=== PATIENT | female | born 2000 | race Two or more races ===

== ENCOUNTER 2025-09-21 14:40 | Emergency (ER) | payer MEDICAID, SELFPAY ==
[2025-09-21 14:42] VITALS: BMI 30.6
[2025-09-21 14:50] VITALS: BP 110/71; PULSE 96; RESP 20; TEMP 36.6; O2SAT 97
--- NOTE | 2025-09-21 15:27 | EDNOTE_ITS ---
ED General RME/HPI General Chief complaint: Fever Stated complaint: LOST A TAMPON IN MY VAGINA X2 DAYS; FEVER Time Seen by Provider: 09/21/25 15:06 Arrival date/time: 09/21/25 14:40 25-year-old female patient came in for evaluation regarding possible tampon in the vagina for 2 days. Patient also complained of fever. Associated with pelvic discomfort. Denies any abnormal vaginal discharge. No abdominal pain no rashes noted no vomiting or other complaints noted. Related Data Previous Rx's ?Medication ?Instructions ?Recorded ibuprofen 800 mg tablet 800 mg PO TID PRN pain #30 t abs 09/21/25 Allergies Allergy/AdvReac Type Severity Reaction Status Date / Time No Known Allergies Allergy Verified 09/21/25 14:44 Review of Systems Review of Systems Narrative Review of Systems: Review of system reviewed and within normal limits except mentioned in HPI ED Exam Narrative Physical exam: VITAL SIGNS: Reviewed. GENERAL APPEARANCE: Alert and interactive, follows commands, no acute distress, HEAD AND FACE: Non-traumatic. ENT: PERRL, pink conjunctivitis, eyelid no trauma, Mucous membrane moist. NECK: Supple, nontender, no nuchal rigidity. CHEST: No tenderness, no crepitus, no paradoxical movement, no retractions. LUNGS: Clear, well ventilated, symmetric, no rales, no wheezing, no ronchi, no stridor, good breath sounds bilaterally. HEART: Regular rate, regular rhythm, no murmur, no gallops. ABDOMEN: Soft, positive bowel sounds, nondistended, no guarding, nontender, no rebound, no masses, RECTAL: Deferred. GENITAL: See MDM NEUROLOGICAL: Gross motor function intact sensory function intact, Appropriate f or age. MUSCULOSKELETAL: low back nontender, full range of motion. EXTREMITIES: Nontender, full range of motion. SKIN: Color pink, dry, no rash, no lacerations, no abrasions, no contusions. LYMPHATICS: Deferred. Course Quality Measures none Orders Category Date Time Status HCG Qualitative,Urine Stat Lab 09/21/25 16:30 Completed UA, C/S IF [Urinalysis, C/S if Indicated] Stat Lab 09/21/25 16:30 Completed Ketorolac Inj [Toradol Inj] Med 09/21/25 15:33 Discontinued 30 mg IM X1 ONE Vital Signs Vital signs: Vital Signs Temperature 97.8 F 09/21/25 14:50 Pulse Rate 96 09/21/25 14:50 Respiratory Rate 20 09/21/25 14:50 Blood Pressure 110/71 09/21/25 14:50 Pulse Oximetry (%) 97 09/21/25 14:50 Oxygen Delivery Method Room Air 09/21/25 14:50 Discharge Plan Plan Patient Disposition: HOME (Self Care) Discharge Disposition comment: Stable Prescriptions/Referrals Prescriptions/Med Rec: New ibuprofen 800 mg tablet 800 mg PO TID PRN (Reason: pain) Qty: 30 0RF Referrals: Gil Hutchison MD [Primary Care Provider, Family Practice] - In 1 week Problem List Clinical Impression: Dysmenorrhea Patient/Caregiver Discharge Instructions Discharge Activity: activity as tolerated Education Materials: ED MENSTRUAL CRAMPING Additional Instructions: Thank you for the opportunity for serving you today. You are stable for discharged . You are advised to: Follow-up with your PCP in 1 to 2 days Return to ED for worsening of symptoms Increase oral fluids Take medication as prescribed Pelvic exam did not show any foreign body in her vagina, urinalysis no UTI I wanted to follow-up with your LOGISTICS ENGINEER regarding your urinary incontinence. Print Language: Filipino Stand Alone Forms: Apiary Award Info., Patient Portal Info Letter MDM Narrative MDM hospital course (for use when minimal MDM required): 09/21/25 14:40 25-year-old female patient came in for evaluation regarding possible tampon in the vagina for 2 days. Patient also complained of fever. Associated with pelvic discomfort. Denies any abnormal vaginal discharge. No abdominal pain no rashes noted no vomiting or other complaints noted. Patient also complaining of urinary incontinence. Pelvic exam was done by me with a female nurse around all the time, using speculum, I did not notice any foreign body in the vaginal canal. No abnormal discharge is noted patient still having menstruation. Urinalysis no UTI Patient was advised to follow-up with LOGISTICS ENGINEER regarding urinary incontinence. Patient agrees with plan Medication Administration(s) Medication Administration History Discontinued Medications Ketorolac Tromethamine (Ketorolac Inj 30 Mg/Ml Vial) 30 mg IM X1 ONE Stop: 09/21/25 15:34 Last Admin: 09/21/25 16:03 Dose: 30 mg Documented By: ABDIEL Diagnosis Differential Diagnosis ED Complaint MDM: Foreign body vagina, tampons in vagina, UTI, urinary incontinence Diagnoses ruled out and/or further discussions: Dysmenorrhea
[2025-09-21] MEDS: KETOROLAC INJ 30 MG/ML VIAL IM (16:03)
[2025-09-21 16:41] LABS: Collection Type, Urine Clean Catch
[2025-09-21 17:05] LABS: Bilirubin,Urine Negative (Negative); Blood,Urine 2+ (Negative); Clarity,Urine Clear (Clear/Hazy); Color,Urine Yellow (Lt Yel-Yel); Culture Indicated,Urine Not Indicated; Glucose, Urine Negative (Negative); Ketones,Urine Negative (Negative); Leukocyte Esterase,Urine Negative (Negative); Nitrite,Urine Negative (Negative); PH,Urine 6.5 (5.0-7.0); Protein,Urine Trace (Neg - Trace); RBC,Urine 3 /hpf (0-3); Specific Gravity,Urine 1.031 (1.001-1.035); Squamous Epithelial Cell,Urine 2 /hpf (0-5); Urobilinogen,Urine Negative mg/dL (0.0-1.0); WBC,Urine 1 /hpf (0-5)
[2025-09-21 17:28] LABS: HCG Qualitative,Urine Negative
== END 2025-09-21 18:00 | disposition home or self-care (01) ==
PROVIDERS: Nurse Practitioner Family; Emergency Provider Emergency Medicine; PCP Family Medicine
DX: N94.6 Dysmenorrhea, unspecified (principal); R50.9 Fever, unspecified; R32 Unspecified urinary incontinence
CPT/HCPCS: 81001; 81025; 96372; 99282; J1885